=== PATIENT | female | born 1970 | race Caucasian/White ===

== ENCOUNTER 2023-06-26 12:45 | Emergency (ER) | payer MEDICAID ==
[~2023-06-26] VITALS: Ht 152.4 cm; Wt 67.6 kg
[2023-06-26 12:45] VITALS: BP_SYST 134; PULSE 101; RESP 18; TEMP 98.2; O2SAT 98
[2023-06-26] MEDS ORDERED: CEPH250C PO (13:01)
[2023-06-26] MEDS ORDERED: IPRATROPIUM/ALBUTEROL SULFATE 3 ML AMPUL.NEB (DUONEB) ONE (13:19)
== END 2023-06-26 13:13 | disposition home or self-care (01) ==
LOC: SED 12:45
DX: S61.012A Laceration without foreign body of left thumb without damage to nail, initial encounter (principal); Z79.899 Other long term (current) drug therapy; W26.8XXA Contact with other sharp object(s), not elsewhere classified, initial encounter; Y93.89 Activity, other specified; Y92.89 Other specified places as the place of occurrence of the external cause; Y99.8 Other external cause status
CPT/HCPCS: 99283

== ENCOUNTER 2023-09-11 13:32 | Emergency (ER) | payer MEDICAID ==
[~2023-09-11] VITALS: Ht 152.4 cm; Wt 68.0 kg
[~2023-09-11 13:32] MED LIST: CEPH250C PO
[2023-09-11 13:37] VITALS: BP_SYST 140; PULSE 73; RESP 18; TEMP 97.8; O2SAT 97
[2023-09-11] MEDS ORDERED: BACITRACIN 1 GM OINT TP ONE (14:34)
[2023-09-11] MEDS ORDERED: DOXY100C5 PO (14:37)
[2023-09-11 14:42] VITALS: BP_SYST 140; PULSE 73; RESP 18; TEMP 97.8; O2SAT 97
[2023-09-11] MEDS: DIPHTH,PERTUSS(ACELL),TET VAC 0.5 ML VIAL (Tdap) I.M. ONE (14:47)
[2023-09-11] MEDS: ACETAMINOPHEN 500 MG TABLET PO ONE (14:47)
== END 2023-09-11 14:42 | disposition home or self-care (01) ==
LOC: SED 13:32
DX: S61.041A Puncture wound with foreign body of right thumb without damage to nail, initial encounter (principal); Z23 Encounter for immunization; X58.XXXA Exposure to other specified factors, initial encounter; Y93.89 Activity, other specified; Y92.89 Other specified places as the place of occurrence of the external cause; Y99.8 Other external cause status
CPT/HCPCS: 90715; 99285

== ENCOUNTER 2023-09-12 14:27 | Emergency (ER) | payer MEDICAID ==
[~2023-09-12] VITALS: Ht 152.4 cm; Wt 68.0 kg
[~2023-09-12 14:27] MED LIST changes: +DOXY100C5 PO
[2023-09-12 14:49] VITALS: BP_SYST 135; PULSE 94; RESP 18; TEMP 98.4; O2SAT 98
[2023-09-12 15:21] LABS: BASOPHILS # (AUTO) 0.1 K/uL (0.0-0.2); BASOPHILS % (AUTO) 0.5 % (0.0-2.0); EOSINOPHILS % (AUTO) 0.3 % (0.0-4.0); HEMATOCRIT 41.1 % (36-48); HEMOGLOBIN 14.1 g/dL (12.0-16.0); LYMPHOCYTES # (AUTO) 1.8 K/uL (1.0-5.5); LYMPHOCYTES % (AUTO) 15.7 % (20.5-51.5); MEAN CORPUSCULAR HEMOGLOBIN 31 pg (27-31); MEAN CORPUSCULAR HGB CONC 34 % (32-36); MEAN CORPUSCULAR VOLUME 89 fL (79.0-98.0); MONOCYTES # (AUTO) 0.8 K/uL (0.0-1.0); MONOCYTES % (AUTO) 7.3 % (1.7-9.3); NEUTROPHILS # (AUTO) 8.7 K/uL (1.8-7.7); NEUTROPHILS % (AUTO) 76.2 % (40.0-70.0); PLATELET COUNT (AUTO) 215 K/uL (130-430); RED BLOOD CELL COUNT(AUTO) 4.63 MIL/uL (4.2-6.2); RED CELL DISTRIBUTION WIDTH 14.2 % (9.0-15.0); WHITE BLOOD COUNT (AUTO) 11.4 K/uL (4.8-10.8)
[2023-09-12 15:37] LABS: CALCIUM 8.8 mg/dL (8.4-11.0); CREATININE 0.75 mg/dL (0.55-1.30); POTASSIUM 3.5 mmol/L (3.5-5.1)
[2023-09-12] MEDS: CLINDAMYCIN 600 mg/50mL D5W 50 ML IV ONE (15:42)
[2023-09-12] MEDS: IBUPROFEN 800 MG TABLET PO ONE (15:43)
[2023-09-12] MEDS ORDERED: MORPHINE 2 MG/ML INJ. SYRINGE ONE (20:40)
[2023-09-12] MEDS: MORPHINE 2 MG/ML INJ. SYRINGE IVP ONE (20:59)
[2023-09-12 21:13] VITALS: BP_SYST 148; PULSE 68; RESP 16; TEMP 97.6; O2SAT 98
== END 2023-09-12 21:13 | disposition short-term general hospital (02) ==
LOC: SED 14:27
DX: L03.011 Cellulitis of right finger (principal); R50.9 Fever, unspecified; Z79.899 Other long term (current) drug therapy; Z20.822 Contact with and (suspected) exposure to COVID-19
CPT/HCPCS: 99284; 96365; 96375; 87426; 80048; 85025; 87040; 36415; 73140; 83605; 82397; J3490; J2270

== ENCOUNTER 2024-02-03 13:20 | Emergency (ER) | payer MEDICAID ==
[~2024-02-03] VITALS: Ht 152.4 cm; Wt 70.3 kg
[2024-02-03 13:29] VITALS: BP_SYST 132; PULSE 75; RESP 16; TEMP 98; O2SAT 97
[2024-02-03] MEDS: ACETAMINOPHEN 500 MG TABLET PO ONE (14:51)
[2024-02-03] MEDS: IBUPROFEN 600 MG TABLET PO ONE (14:51)
[2024-02-03] MEDS ORDERED: DICL20GE TP (15:29)
[2024-02-03] MEDS ORDERED: IBUP-1969 PO (15:29)
[2024-02-03 16:08] VITALS: BP_SYST 132; PULSE 75; RESP 16; TEMP 98; O2SAT 97
== END 2024-02-03 16:10 | disposition home or self-care (01) ==
LOC: SED 13:20
DX: M79.672 Pain in left foot (principal)
CPT/HCPCS: 99283